=== PATIENT | female | born 1955 | race Caucasian/White ===

== ENCOUNTER 2016-03-08 06:15 | Day surgery (SDC) | payer OTHER ==
[2016-03-05 14:20] VITALS: BMI 22.6
[~2016-03-08 06:15] MED LIST: LEVOFLOXACIN 500 MG PREMIX BAG IVPB ONE
[2016-03-08] MEDS ORDERED: PROPOFOL 20 ML ONE (07:11)
[2016-03-08] MEDS ORDERED: MIDAZOLAM HCL 2 MG/2 ML SINGLE DOSE VIAL ONE (07:11)
[2016-03-08] MEDS ORDERED: SUCCINYLCHOLINE CHLORIDE 200 MG/10 ML VIAL ONE (07:11)
[2016-03-08] MEDS ORDERED: LEVOFLOXACIN 500 MG PREMIX BAG IVPB ONE (08:27)
[2016-03-08] MEDS ORDERED: ONDANSETRON 4 MG/2 ML VIAL IVPUSH PRN (09:01)
[2016-03-08] MEDS ORDERED: PROMETHAZINE HCL 25 MG/1 ML VIAL IVPUSH PRN (09:01)
[2016-03-08] MEDS ORDERED: LACTATED RINGERS SOLUTION 1,000 ML IV SCH (09:15)
--- NOTE | 2016-03-08 09:25 | OP ---
Operative Note - Note: Operative Date: 03/08/16 Pre-Operative Diagnosis: right renal stones Operation: right eswl Findings: two right renal stones each measuring 5 mm Post-Operative Diagnosis: Same as Pre-op Surgeon: Boby Smith Anesthesia: General Operative Report Dictated: Yes
[2016-03-08] MEDS ORDERED: ONDANSETRON 4 MG/2 ML VIAL ONE (10:06)
[2016-03-08 10:08] VITALS: TEMP 97.1
--- NOTE | 2016-03-08 10:13 | OP ---
OPERATIVE NOTE DATE OF OPERATION: 03/08/2016 PREOPERATIVE DIAGNOSIS: Right renal stones POSTOPERATIVE DIAGNOSIS: Right renal stones PROCEDURE: Right extracorporeal shock wave lithotripsy ATTENDING: Odalis Andrade MD ANESTHESIA: General OPERATION: The patient was brought to the operating room, placed in supine position on the operating room table. Anesthesia was administered to the patient without complication. Antibiotics were also given preoperatively. Ultrasonography was performed prior to anesthesia, and two stones each measuring 5 mm were located in the right renal caliceal system. Once anesthesia was given, 2500 impulses at 18-20 joules of power were administered to the stone. Excellent fragmentation was noted on real-time ultrasonography and fluoroscopy. No complications were noted. The patient was discharged to the recovery room. ODALIS HENDRIX M.D. [id number]
[2016-03-08 11:14] VITALS: PULSE 67
[2016-03-08] MEDS ORDERED: PROMETHAZINE HCL 25 MG/1 ML VIAL IVPB ONE (11:30)
[2016-03-08] MEDS ORDERED: PROMETHAZINE HCL 25 MG/1 ML VIAL ONE (11:30)
[2016-03-08 13:11] VITALS: BP 120/70
== END 2016-03-08 13:12 | disposition home or self-care (01) ==
LOC: JASU-SURG 06:15
PROVIDERS: ATTEND Urology
PROC: 0TF3XZZ Fragmentation in Right Kidney Pelvis, External Approach (ICD-10-PCS; principal; 2016-03-08 08:00)
DX: N20.0 Calculus of kidney (principal)
CPT/HCPCS: 94760

== ENCOUNTER 2017-08-28 20:16 | Emergency (ER) | payer OTHER ==
[2017-08-28 20:31] VITALS: BP 139/92; PULSE 83; TEMP 97.7; BMI 49.9
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
[2017-08-28] MEDS ORDERED: ACETAMINOPHEN 325 MG TABLET (FP) PO ONE (20:33)
[2017-08-28] MEDS ORDERED: ACETAMINOPHEN 325 MG TABLET (FP) ONE (20:39)
== END 2017-08-28 21:34 | disposition home or self-care (01) ==
LOC: JERFT 20:16
DX: T58.8X1A Toxic effect of carbon monoxide from other source, accidental (unintentional), initial encounter (principal); R51 Headache; Y92.038 Other place in apartment as the place of occurrence of the external cause
CPT/HCPCS: 99281-25

== ENCOUNTER 2018-03-01 18:24 | Emergency (ER) | payer OTHER ==
[2018-03-01 18:29] VITALS: TEMP 98.1; BMI 22.3
--- NOTE | 2018-03-01 18:32 | PDOC ---
Rapid Medical Evaluation Chief Complaint: Pain, Acute Time Seen by Provider: 03/01/18 18:31 Medical Evaluation: Allergies Allergy/AdvReac Type Severity Reaction Status Date / Time codeine Allergy "VOMITS" Verified 03/01/18 18:29 Vital Signs Temp Pulse Resp BP Pulse Ox 98.1 F 92 H 18 133/87 19 L 03/01/18 18:26 03/01/18 18:26 03/01/18 18:26 03/01/18 18:26 03/01/18 18:26 03/01/18 18:31 I have performed a brief in-person evaluation of this patient. The patient presents with a chief complaint of: right flank pain x2 weeks Pertinent physical exam findings: R CVAT. Abd SNTND. I have ordered the following: urine, labs The patient will proceed to the ED for further evaluation. Discharge Disposition - Diagnosis Right flank pain - Referrals - Patient Instructions - Post Discharge Activity
[2018-03-01] MEDS ORDERED: KETOROLAC TROMETHAMINE 30 MG/1 ML VIAL IVPUSH ONE (19:49)
--- NOTE | 2018-03-01 20:10 | PDOC ---
*Physical Exam - Vital Signs Last Vital Signs Temp Pulse Resp BP Pulse Ox 98.1 F 92 H 18 133/87 19 L 03/01/18 18:26 03/01/18 18:26 03/01/18 18:26 03/01/18 18:26 03/01/18 18:26 - Physical Exam Comments: 03/01/18 20:10 The patient was examined by [MAURI Acuña] under my direct supervision. I personally evaluated the patient. I concur with the above findings and the plan of care. *DC/Admit/Observation/Transfer Diagnosis at time of Disposition: Right flank pain - Referrals Referrals: Flakita Gonzalez [Primary Care Provider] - - Patient Instructions - Post Discharge Activity
[2018-03-01] MEDS ORDERED: KETOROLAC TROMETHAMINE 30 MG/1 ML VIAL ONE (20:39)
--- NOTE | 2018-03-01 20:55 | PDOC ---
History of Present Illness - General Chief Complaint: Pain, Acute Stated Complaint: PAIN, ACUTE Time Seen by Provider: 03/01/18 18:31 History Source: Patient Exam Limitations: No Limitations Past History - Past Medical History Allergies/Adverse Reactions: Allergies Allergy/AdvReac Type Severity Reaction Status Date / Time codeine Allergy "VOMITS" Verified 03/01/18 18:29 Home Medications: Ambulatory Orders Enalapril Maleate [Vasotec -] 10 mg PO DAILY 12/09/13 Atenolol [Tenormin -] 25 mg PO DAILY 03/01/18 Metformin HCl [Glucophage] 1,000 mg PO DAILY 03/01/18 Metoclopramide HCl 5 mg PO DAILY 03/01/18 Pantoprazole Sodium [Protonix] 40 mg PO DAILY 03/01/18 Simvastatin 10 mg PO DAILY 03/01/18 COPD: No Diabetes: Yes (NIDDM) HTN: Yes - Surgical History Appendectomy: Yes - Immunization History Immunization Up to Date: Yes - Suicide/Smoking/Psychosocial Hx Smoking Status: No Smoking History: Never smoked Number of Cigarettes Smoked Daily: 0 Information on smoking cessation initiated: No Hx Alcohol Use: No Drug/Substance Use Hx: No Substance Use Type: None Hx Substance Use Treatment: No *Physical Exam - Vital Signs Last Vital Signs Temp Pulse Resp BP Pulse Ox 98.1 F 92 H 18 133/87 19 L 03/01/18 18:26 03/01/18 18:26 03/01/18 18:26 03/01/18 18:26 03/01/18 18:26 - Physical Exam General Appearance: No: Apparent Distress Respiratory/Chest: positive: Lungs Clear, Normal Breath Sounds. negative: Respiratory Distress Cardiovascular: positive: Regular Rhythm, Regular Rate, S1, S2. negative: Murmur Gastrointestinal/Abdominal: positive: Normal Bowel Sounds, Soft. negative: Tender, Distended, Guarding, Rebound Musculoskeletal: positive: CVA Tenderness (R) (Mild). negative: CVA Tenderness (L), Muscle Spasm, Vertebral Tenderness Neurologic: positive: Fully Oriented, Alert, Normal Mood/Affect Moderate Sedation - Procedure Monitoring Vital Signs: Procedure Monitoring Vital Signs Temperature 98.1 F 03/01/18 18:26 Pulse Rate 92 H 03/01/18 18:26 Respiratory Rate 18 03/01/18 18:26 Blood Pressure 133/87 01/09/19 18:26 O2 Sat by Pulse Oximetry (%) 19 L 03/01/18 18:26 ED Treatment Course - LABORATORY CBC & Chemistry Diagram: 03/01/18 20:33 03/01/18 20:33 - RADIOLOGY Radiology Studies Ordered: Category Date Time Status ABDOMEN & PELVIS CT W/O CONTR [CT] Stat CT Scan 03/01/18 20:15 Ordered Medical Decision Making - Medical Decision Making 62 y/o F hx of HTN and DM presents with R flank pain x 2 weeks, worsening today along with dysuria. Denies fever, chills, sob, cp, abd pain, n/v, hematuria, urinary frequency/urgency, unusual vaginal discharge. Has hx of appendectomy. Mentions having kidney stones, but uncertain if this is kidney stones Consider kidney stones, UTI, pyelo (though afebrile here) Plan: Labs, UA, UCx, CT abd/pelvis, Toradol [Of note, patient's pulse ox is actually 97%, 19% was written in error] 03/01/18 20:53 Labs reviewed and unremarkable. UA negative for infection CT A/P shows no acute findings Patient in no pain Stable for d/c 03/01/18 22:04 *DC/Admit/Observation/Transfer Diagnosis at time of Disposition: Right flank pain - Discharge Dispostion Disposition: HOME Condition at time of disposition: Improved Decision to Admit order: No - Referrals Referrals: Flakita Gonzalez [Primary Care Provider] - 3 days - Patient Instructions Printed Discharge Instructions: DI for Flank Pain Additional Instructions: Thank you for choosing [facility]. It was a pleasure taking care of you. You were seen here for flank pain. Your labs were unremarkable and your urine showed no sign of infection Your CT scan showed no acute findings. Follow-up with your PCP in 3 days Return to the Emergency Department if your symptoms worsen or persist, you have fever, shortness of breath, chest pain, severe abdominal pain, vomiting, blood in urine or other concerning symptoms. - Post Discharge Activity
[2018-03-01 20:56] LABS: BASO % 0.7 % (0-2.0); EOS % 4.4 % (0-4.5); HEMATOCRIT 41.5 % (32.4-45.2); HEMOGLOBIN 14.3 GM/dL (10.7-15.3); LYMPH % 35.7 % (8-40); MCH 30.7 pg (25.7-33.7); MCHC 34.5 g/dl (32.0-36.0); MEAN PLT VOLUME 7.7 fl (7.5-11.1); MONO % 8.2 % (3.8-10.2); PLATELET COUNT 336 K/MM3 (134-434); RBC 4.66 M/mm3 (3.60-5.2); RDW 13.2 % (11.6-15.6); WHITE BLOOD COUNT 7.8 K/mm3 (4.0-10.0)
[2018-03-01 20:58] LABS: URINE APPEARANCE CLEAR; URINE BILIRUBIN NEGATIVE (<2.0 mg/dL); URINE COLOR STRAW; URINE GLUCOSE (UA) NEGATIVE (NEGATIVE); URINE KETONE NEGATIVE (NEGATIVE); URINE LEUK ESTERASE NEGATIVE (NEGATIVE); URINE NITRITE NEGATIVE (NEGATIVE); URINE PROTEIN NEGATIVE (NEGATIVE); URINE UROBILINOGEN NEGATIVE mg/dL (0.2-1.0)
[2018-03-01 21:27] LABS: ALBUMIN 3.9 g/dl (3.4-5.0); ALK PHOS 88 U/L (45-117); ANION GAP 9 MMOL/L (8-16); BILIRUBIN,TOTAL 0.4 mg/dL (0.2-1); BLOOD UREA NITROGEN 12 mg/dL (7-18); CHLORIDE 105 mmol/L (98-107); CO2 26 mmol/L (21-32); CREATININE 0.7 mg/dL (0.55-1.3); GLUCOSE,RANDOM 107 mg/dL (74-106); POTASSIUM 3.9 mmol/L (3.5-5.1); SGOT/AST 18 U/L (15-37); SGPT/ALT 21 U/L (13-61); SODIUM 139 mmol/L (136-145); TOT PROT 6.8 g/dl (6.4-8.2)
[2018-03-01 22:28] VITALS: BP 115/65; PULSE 80
== END 2018-03-01 22:20 | disposition home or self-care (01) ==
LOC: JER 18:24
DX: R10.31 Right lower quadrant pain (principal); I10 Essential (primary) hypertension; E11.9 Type 2 diabetes mellitus without complications; Z79.84 Long term (current) use of oral hypoglycemic drugs
CPT/HCPCS: 36415; 74176-TC; 80053; 81003; 81015; 85025; 87086; 99282-25

== ENCOUNTER 2018-10-02 09:03 | Day surgery (SDC) | payer OTHER ==
[2018-09-29 13:56] VITALS: BMI 23.8
[2018-10-02] MEDS ORDERED: MIDAZOLAM HCL 2 MG/2 ML SINGLE DOSE VIAL ONE ×2 (10:28)
--- NOTE | 2018-10-02 10:57 | OP ---
Operative Note - Note: Operative Date: 10/02/18 Pre-Operative Diagnosis: Right renal stone Operation: Right ESWL Findings: 8 mm mid pole Right renal stone Post-Operative Diagnosis: Same as Pre-op Surgeon: Boby Smith Anesthesia: Fractional Estimated Blood Loss (mls): 0 Operative Report Dictated: Yes
[2018-10-02] MEDS ORDERED: ONDANSETRON 4 MG/2 ML VIAL IVPUSH PRN (11:03)
[2018-10-02] MEDS ORDERED: oxyCODONE HCL 5 MG TABLET PO PRN (11:03)
[2018-10-02] MEDS ORDERED: LACTATED RINGERS SOLUTION 1,000 ML IV SCH (11:15)
[2018-10-02 11:35] VITALS: TEMP 97.9
[2018-10-02] MEDS ORDERED: ONDANSETRON 4 MG/2 ML VIAL ONE (12:53)
[2018-10-02] MEDS ORDERED: ONDANSETRON 4 MG/2 ML VIAL IVPB ONE (13:00)
[2018-10-02] MEDS ORDERED: FAMOTIDINE 20 MG PREMIXED IVPB IVPB ONE (13:35)
[2018-10-02] MEDS ORDERED: FAMOTIDINE 20 MG/50 ML IVPB 20 MG/50 ML MG IVPB ONE ×2 (15:28→15:45)
[2018-10-02 17:37] VITALS: BP 146/77; PULSE 68
--- NOTE | 2018-10-02 19:52 | OP ---
DATE OF OPERATION: 10/02/2018 PREOPERATIVE DIAGNOSIS: Right renal stone. POSTOPERATIVE DIAGNOSIS: Right renal stone. PROCEDURE: Right extracorporeal shockwave lithotripsy. ATTENDING: Odalis Smith M.D. ANESTHESIA: Fractional. DESCRIPTION OF PROCEDURE: Patient was brought in the operating room, placed in a supine position on the operating room table. Ultrasonography and fluoroscopy were performed. An 8-mm right stone was identified. Anesthesia was then administered. Shockwave lithotripsy was then performed. Excellent fragmentation of the stone was noted under real-time ultrasonography and fluoroscopy. No complications were noted. The patient tolerated the procedure very well. ODALIS HENDRIX M.D. [id number]
== END 2018-10-02 17:30 | disposition home or self-care (01) ==
LOC: JASU-SURG 09:03
PROVIDERS: ATTEND Urology
PROC: 0TF3XZZ Fragmentation in Right Kidney Pelvis, External Approach (ICD-10-PCS; principal; 2018-10-02 11:00)
DX: N20.0 Calculus of kidney (principal); I10 Essential (primary) hypertension; E11.9 Type 2 diabetes mellitus without complications; Z79.84 Long term (current) use of oral hypoglycemic drugs; K21.9 Gastro-esophageal reflux disease without esophagitis
CPT/HCPCS: 82962

== ENCOUNTER 2020-03-20 14:08 | Emergency (ER) | payer OTHER ==
[2020-03-20 14:18] VITALS: BP 160/90; PULSE 105; BMI 22.3
[2020-03-20] MEDS ORDERED: ALPRAZolam 0.25 MG TABLET PO ONE (15:01)
[2020-03-20] MEDS ORDERED: ALPRAZolam 0.25 MG TABLET ONE (15:06)
[2020-03-20 15:35] LABS: BASO % 0.4 % (0-2.0); EOS % 2.4 % (0-4.5); HEMATOCRIT 47.1 % (32.4-45.2); HEMOGLOBIN 15.7 GM/dL (10.7-15.3); MCH 30.5 pg (25.7-33.7); MCHC 33.4 g/dl (32.0-36.0); MEAN CELL VOLUME 91.4 fl (80-96); MEAN PLT VOLUME 7.5 fl (7.5-11.1); MONO % 8.4 % (3.8-10.2); NEUT % 64.8 % (42.8-82.8); PLATELET COUNT 350 K/MM3 (134-434); RBC 5.16 M/mm3 (3.60-5.2); RDW 12.9 % (11.6-15.6); WHITE BLOOD COUNT 8.7 K/mm3 (4.0-10.0)
[2020-03-20 15:38] LABS: CHLORIDE 107 mmol/L (98-107); POTASSIUM 4.1 mmol/L (3.5-5.1); SODIUM 141 mmol/L (136-145)
[2020-03-20 15:39] LABS: BLOOD UREA NITROGEN 12.3 mg/dL (7-18)
[2020-03-20 15:41] LABS: CALCIUM 9.5 mg/dL (8.5-10.1)
[2020-03-20 15:42] LABS: ALBUMIN 4.4 g/dl (3.4-5.0); ANION GAP 7 MMOL/L (8-16); CO2 27 mmol/L (21-32); GLUCOSE,RANDOM 102 mg/dL (74-106)
[2020-03-20 15:45] LABS: CREATININE 0.7 mg/dL (0.55-1.3); SGOT/AST 15 U/L (15-37); SGPT/ALT 25 U/L (13-61)
[2020-03-20 15:46] LABS: BILIRUBIN,TOTAL 0.8 mg/dL (0.2-1); TOT PROT 7.7 g/dl (6.4-8.2)
[2020-03-20 15:47] LABS: ALK PHOS 92 U/L (45-117)
== END 2020-03-20 17:17 | disposition home or self-care (01) ==
LOC: JER 14:08 → JERFT 14:08
DX: F41.9 Anxiety disorder, unspecified (principal)
CPT/HCPCS: 36415; 71046-TC-FY; 80053; 82550; 82553; 84439; 84443; 84484; 85025; 93005; 93010; 99285-25

== ENCOUNTER 2022-06-12 18:41 | Emergency (ER) | payer OTHER ==
[2022-06-12 19:30] VITALS: BP 141/91; PULSE 102; RESP 18; TEMP 97.9; BMI 20.7
[2022-06-12] MEDS ORDERED: ACETAMINOPHEN 325 MG TABLET (FP) PO ONE (20:04)
[2022-06-12] MEDS ORDERED: ACETAMINOPHEN 325 MG TABLET (FP) ONE (20:34)
== END 2022-06-12 23:32 | disposition home or self-care (01) ==
LOC: JER 18:41
DX: S00.83XA Contusion of other part of head, initial encounter (principal); M25.561 Pain in right knee; M54.2 Cervicalgia; M54.9 Dorsalgia, unspecified; R07.89 Other chest pain; V43.52XA Car driver injured in collision with other type car in traffic accident, initial encounter; W22.8XXA Striking against or struck by other objects, initial encounter; Y93.I9 Activity, other involving external motion
CPT/HCPCS: 70450-TC; 71045-TC-FY; 72125-TC; 73562-TC-RT-FY; 93005; 93010; 99285-25

== ENCOUNTER 2023-01-17 03:55 | Day surgery (SDC) | payer OTHER ==
[2023-01-11 13:50] VITALS: BMI 22.6
[2023-01-17 07:29] VITALS: RESP 20
[2023-01-17] MEDS ORDERED: FENTANYL CITRATE/PF 50 MCG/ML VIAL ONE (09:05)
[2023-01-17] MEDS ORDERED: MIDAZOLAM HCL 2 MG/2 ML SINGLE DOSE VIAL ONE (09:05)
[2023-01-17 11:55] VITALS: BP 120/60; PULSE 70; TEMP 98
== END 2023-01-17 11:50 | disposition home or self-care (01) ==
LOC: JASU-SURG 03:55
PROVIDERS: ATTEND Urology
PROC: 0TF3XZZ Fragmentation in Right Kidney Pelvis, External Approach (ICD-10-PCS; principal; 2023-01-17 09:00)
DX: N20.0 Calculus of kidney (principal)
CPT/HCPCS: 82962